=== PATIENT | male | born 1945 | race Caucasian/White ===

== ENCOUNTER 2023-03-29 14:17 | Inpatient (IN) | payer MEDICARE, OTHER ==
[~2023-03-29] VITALS: Ht 167.6 cm; Wt 88.5 kg
[~2023-03-29 14:17] MED LIST: AMLO5 PO; ASPI81CH PO
[2023-03-29 14:42] LABS: BASOPHILS ABSOLUTE AUTO 0.03 K/mm3 (0.00-0.23); BASOPHILS PERCENT AUTO 1 % (0-2); EOSINOPHILS ABSOLUTE AUTO 0.18 K/mm3 (0.00-0.68); EOSINOPHILS PERCENT AUTO 3 % (0-6); Hematocrit 42.9 % (37.0-53.0); IMMATURE GRAN ABSOLUTE AUTO 0.02 K/mm3 (0.00-0.10); IMMATURE GRAN PERCENT AUTO 0 % (0-1); LYMPHOCYTES ABSOLUTE AUTO 1.31 K/mm3 (0.84-5.20); LYMPHOCYTES PERCENT AUTO 25 % (21-46); MONOCYTES ABSOLUTE AUTO 0.41 K/mm3 (0.16-1.47); MONOCYTES PERCENT AUTO 8 % (4-13); Mean Corpuscular Volume 83 fL (80-100); Mean Platelet Volume 9.4 fL (9.1-12.4); NEUTROPHILS ABSOLUTE AUTO 3.31 K/mm3 (1.96-9.15); NEUTROPHILS PERCENT AUTO 63 % (41-73); Platelet Count 277 K/mm3 (150-400); RDW Coefficient Variation 12.1 % (11.7-14.2); RDW Standard Deviation 37.1 fL (35.1-46.3); Red Blood Cell Count 5.18 M/mm3 (4.30-5.90); White Blood Cell Count 5.26 K/mm3 (4.00-11.30)
[2023-03-29 15:10] LABS: Albumin, Blood 3.2 g/dL (3.4-5.0); Albumin/Globulin Ratio 0.7 (0.8-1.8); Bilirubin, Total 0.4 mg/dL (0.1-1.0); Bun/Creatinine Ratio 13.1 (12.0-20.0); Calcium, Blood 9.1 mg/dL (8.5-10.1); Creatinine, Blood 1.37 mg/dL (0.60-1.20); Globulin, Blood 4.3 g/dL (2.2-4.0); Potassium, Blood 4.3 mmol/L (3.5-5.5); Total Protein, Blood 7.5 g/dL (6.4-8.2)
[2023-03-29 18:07] VITALS: BP 182/107
--- NOTE | 2023-03-29 18:43 | NUR ---
SHIFT SUMMARY: ASSUMED CARE OF PATIENT UPON HIS ARRIVAL FROM ED AT 1750. A&O X 4, NO NEURO DEFICITS NOTED ON EXAM, BUT SPEECH IS A LITTLE SLURRED AND HE HAS A BIT OF TROUBLE WORD FINDING. ORIENTED TO ROOM, FALL PRECAUTIONS, CALL LIGHT. DENIES PAIN. USES CANE FOR AMBULATION.
[2023-03-29 19:10] VITALS: BP 129/83
[2023-03-30] VITALS (7 sets, daily range): BP systolic 128–179; BP diastolic 67–102
[2023-03-30 04:44] LABS: BASOPHILS ABSOLUTE AUTO 0.04 K/mm3 (0.00-0.23); BASOPHILS PERCENT AUTO 1 % (0-2); EOSINOPHILS PERCENT AUTO 3 % (0-6); Hematocrit 42.8 % (37.0-53.0); IMMATURE GRAN ABSOLUTE AUTO 0.04 K/mm3 (0.00-0.10); IMMATURE GRAN PERCENT AUTO 1 % (0-1); LYMPHOCYTES ABSOLUTE AUTO 1.34 K/mm3 (0.84-5.20); LYMPHOCYTES PERCENT AUTO 23 % (21-46); MONOCYTES ABSOLUTE AUTO 0.45 K/mm3 (0.16-1.47); MONOCYTES PERCENT AUTO 8 % (4-13); Mean Corpuscular HGB 28.7 pg (26.0-34.0); Mean Corpuscular Volume 82 fL (80-100); Mean Platelet Volume 9.3 fL (9.1-12.4); NEUTROPHILS ABSOLUTE AUTO 3.81 K/mm3 (1.96-9.15); NEUTROPHILS PERCENT AUTO 65 % (41-73); Platelet Count 245 K/mm3 (150-400); RDW Coefficient Variation 12.2 % (11.7-14.2); RDW Standard Deviation 36.5 fL (35.1-46.3); Red Blood Cell Count 5.22 M/mm3 (4.30-5.90); White Blood Cell Count 5.88 K/mm3 (4.00-11.30)
--- NOTE | 2023-03-30 05:01 | NUR ---
SUMMARY: PT A/OX4, IS AWARE OF LIMITATIONS AND CALLS APPROPRIATELY TO SPECIFY NEEDS. NEURO OBS STABLE T/O NOCTE AND NO S/S TIA OR STROKE LIKE SYMPTOMS. BETSY, STRENGTH IS EQUAL BILATERALLY AND SPEECH IS CLEAR AND IMPROVED FROM PREVIOUS REPORT. HE'S UP W/CANE AND CHANGED PULLUP BRIEF PRN FOR URINE INCONTINENCE R/T HX PROSTATECTOMY. MRI W/O CONTRAST AND ECHO PLANNED TODAY. NO ACUTE CHANGES, VSS/AFEBRILE. WCTM AND REPORT TO DAY RN.
[2023-03-30 05:12] LABS: Alanine Aminotransfer (ALT/SGP 15 U/L (12-78); Albumin/Globulin Ratio 0.8 (0.8-1.8); Alk Phos 141 U/L (50-136); Anion Gap 9 mmol/L (6-16); Aspartate Aminotrans (AST/SGOT 12 U/L (12-37); Bilirubin, Total 0.5 mg/dL (0.1-1.0); Blood Urea Nitrogen 17 mg/dL (8-24); Bun/Creatinine Ratio 13.2 (12.0-20.0); CHOL/HDL RATIO 6.6; CO2, Blood 22 mmol/L (21-32); Chloride, Blood 108 mmol/L (98-108); Cholesterol 212 mg/dL (50-200); Creatinine, Blood 1.29 mg/dL (0.60-1.20); Glomerular Filtration Rate 57 (60-); Glucose, Blood 155 mg/dL (70-99); HDL Cholesterol 32 mg/dL (>39); LDL/HDL RATIO 4.2; Low Density Lipoprotein Chol 134 mg/dL (0-110); Magnesium, Blood 2.3 mg/dL (1.6-2.4); Phosphorus, Blood 3.2 mg/dL (2.5-4.9); Potassium, Blood 3.8 mmol/L (3.5-5.5); Sodium, Blood 139 mmol/L (136-145); Triglycerides 229 mg/dL (30-160); Very Low Density Lipoprot Chol 45 mg/dL (6-32)
--- NOTE | 2023-03-30 17:52 | NUR ---
SHIFT SUMMARY A&O X 4. SBP REMAINS 150-160 RANGE WITH SOME ELEVATING TO 170-190. PRN HYDRALIAZINE GIVEN FOR SBP >170 WITH GOOD EFFECT, SBP DECREASING TO 130'S. PT USES CANE FR AMBULATING TO RESTROOM. ECHO DONE. ATTEMPTS TO OBTAIN CARDIAC STENT INFO FROM [facility] IN [place] IS STILL IN PROCESS BY [facility]. MRI OF HEAD IS PENDING STENT/MRI COMPATABILITY VERIFICATION. IS PLEASANT & COOPERATIVE WITH ALL CARE. APPETITE IS GOOD. BLOOD SUGARS COVERED PER EMAR. ORDERS RECEIVED FOR Q 4 VS. PLAN IS FOR POSSIBLE DC TOMORROW.
--- NOTE | 2023-03-30 18:06 | NUR ---
ADDENDEUM TO SHIFT SUMMARY PT EXPERIENCED STUTTERING & DIFFICULTY GETTING WORDS OUT, SIMILAR TO STROKE LIKE SYMPTOMS THAT BROUGHT HIM TO ER & LIKE BEFORE, SYMPTOMS RESOLVED QUICKLY. IT WAS DURING THIS TIME THAT HIS SBP ELEVATED TO 170-190 RANGE. PRN IV HYDRALAZINE GIVEN.
[2023-03-31 02:21] VITALS: BP 147/75
--- NOTE | 2023-03-31 05:56 | NUR ---
PATIENT IS ALERT AND ORIENTED X3, CALLS TO MAKE NEEDS KNOWN, IND TO BATHROOM WITH CANE. MRI TO BE COMPLETED THIS AM, CHECKLIST HAS BEEN FAXED. PATIENT IS CONT/INC, SOME HTN BUT NOT HIGH ENOUGH TO TREAT. NO OTHE ISSUES TO REPORT.
[2023-03-31 07:43] VITALS: BP 162/99
[2023-03-31 12:48] VITALS: BP 161/91
[2023-03-31 15:17] VITALS: BP 144/84
[2023-03-31] MEDS ORDERED: ATOR40TA PO (15:58)
[2023-03-31] MEDS ORDERED: CLOP75 PO (15:58)
[2023-03-31] MEDS ORDERED: Prinivil10 MG PO (15:58)
[2023-03-31] MEDS ORDERED: NIFE30ER PO (15:59)
--- NOTE | 2023-03-31 17:27 | NUR ---
LATE ENTRY/DC HOME. WRITTEN & VERBAL DC INSTRUCTIONS GIVEN TO PT WITH FAMILY MEMBERS PRESENT, ALL VERBALIZED GOOD UNDERSTANDING. PIV DC'D WITH CATH TIP INTACT, NO REDNESS OR SWELLING NOTED. NEW SCRIPTS FAXED TO [facility]. PT TO PRIVATE VEHICLE VIA W/C WITH ALL PERSONAL BELONGINGS.
== END 2023-03-31 17:12 | disposition home or self-care (01) | DRG 65 ==
LOC: ER 14:17 → MEDS 16:36
PROVIDERS: Physician Assistant; ADMIT Family Medicine
DX: I63.9 Cerebral infarction, unspecified (principal); I16.1 Hypertensive emergency; K51.90 Ulcerative colitis, unspecified, without complications; R47.81 Slurred speech; R29.702 NIHSS score 2; E11.9 Type 2 diabetes mellitus without complications; I10 Essential (primary) hypertension; R47.1 Dysarthria and anarthria; Z88.5 Allergy status to narcotic agent; I65.23 Occlusion and stenosis of bilateral carotid arteries; I25.2 Old myocardial infarction; Z95.5 Presence of coronary angioplasty implant and graft; Z79.82 Long term (current) use of aspirin; Z79.84 Long term (current) use of oral hypoglycemic drugs; Z79.899 Other long term (current) drug therapy
CPT/HCPCS: 36415; 70450; 70496; 70498; 80053; 80061; 82947; 83520; 83735; 84100; 84443; 85025; 93005; 93010; 93306; 96374-59; 99285-25; A9270; J0360; J1644; Q9967